=== PATIENT | male | born 1965 | race Caucasian/White ===

== ENCOUNTER → 2017-04-03 | Outpatient (CLI) | payer OTHER ==
[~2017-04-03] MED LIST: AMLO5; ASACOL HD800 MG PO; CYCL10; HYDACE10B; MESA250ER PO; NAPR220 PO; Pentasa500 MG; Prednisone20 MG PO
== END | disposition home or self-care (01) ==
LOC: PLD 09:23
DX: N40.0 Benign prostatic hyperplasia without lower urinary tract symptoms (principal)
CPT/HCPCS: 88305

== ENCOUNTER 2020-05-19 07:06 | Day surgery (SDC) | payer OTHER ==
[~2020-05-19] VITALS: Ht 175.3 cm; Wt 78.6 kg
--- NOTE | 2020-05-19 07:38 | NUR ---
Ambulatory in Day Surgery Patient states colon prep results clear. History, Chart, Medications and Allergies reviewed before start of procedure. Lungs clear T/O to Auscultation. Patient confirms NPO status and agrees with scheduled surgery.
[2020-05-19] MEDS ORDERED: AMLODIPINE-OLM1 EACH PO (07:42)
--- NOTE | 2020-05-19 08:03 | NUR ---
05/19/20 0803 Vinod Dean History, Chart, Medications and Allergies reviewed before start of procedure.MONITOR INTACT WITH CONTINUOUS PULSE OXIMETRY AND INTERMITTENT BP.3-LEAD EKG REVIEWED WITH PHYSICIAN PRIOR TO START OF PROCEDURE.O2 VIA N/C INTACT THROUGHOUT SEDATION/PROCEDURE. PATIENT DETERMINED TO BE ASA APPROPRIATE FOR PROPOFOL SEDATION PRIOR TO START OF PROCEDURE BY DR. MARES.
--- NOTE | 2020-05-19 08:45 | NUR ---
Patient States Post-Procedure ride home has been arranged. Discharge instructions reviewed with patient. Patient verbalizes understanding. Copy given to patient to take home. Discharged via wheelchair to private car for ride home.
== END 2020-05-19 08:45 | disposition home or self-care (01) ==
LOC: ORSCMMR 07:06
PROVIDERS: Internal Medicine Gastroenterology
PROC: 0DBL8ZX Excision of Transverse Colon, Via Natural or Artificial Opening Endoscopic, Diagnostic (ICD-10-PCS; principal; 2020-05-19 08:00)
DX: Z87.19 Personal history of other diseases of the digestive system (principal); Z86.010 Personal history of colon polyps; D12.3 Benign neoplasm of transverse colon; Z79.899 Other long term (current) drug therapy
CPT/HCPCS: 88305; J2704; J7120

== ENCOUNTER → 2024-01-15 | Outpatient (CLI) | payer OTHER ==
[~2024-01-15] MED LIST changes: +AMLODIPINE-OLM1 EACH PO; +Norco 10-325 T1 EACH PO
[2024-01-15 11:23] LABS: Adenovirus F 40/41 Not Detected (NOT DETECT); Astrovirus Detected (NOT DETECT); Campylobacter Sp Not Detected (NOT DETECT); Cryptosporidium Not Detected (NOT DETECT); Cyclospora Cayetanensis Not Detected (NOT DETECT); E. Coli O157 Not Detected (NOT DETECT); Entamoeba Histolytica Not Detected (NOT DETECT); Enteroaggregative E. coli-EAEC Not Detected (NOT DETECT); Enteropathogenic E. coli-EPEC Not Detected (NOT DETECT); Enterotoxigenic E. coli-ETEC Not Detected (NOT DETECT); Giardia Lamblia Not Detected (NOT DETECT); Norovirus GI/GII Not Detected (NOT DETECT); Plesiomonas Shigelloides Not Detected (NOT DETECT); Rotavirus A Not Detected (NOT DETECT); Salmonella Sp Not Detected (NOT DETECT); Sapovirus Not Detected (NOT DETECT); Shiga Toxin-prod E. coli-STEC Not Detected (NOT DETECT); Shigella/Enteroin E. coli-EIEC Not Detected (NOT DETECT); Vibrio Cholerae Not Detected (NOT DETECT); Vibrio Sp Not Detected (NOT DETECT); Yersinia Enterocolitica Not Detected (NOT DETECT)
== END ==
LOC: LAB 04:20 → LAB SHORT 04:20
PROVIDERS: Physician Assistant
DX: R19.7 Diarrhea, unspecified (principal)
CPT/HCPCS: 87507

== ENCOUNTER 2024-07-23 09:07 | Day surgery (SDC) | payer OTHER ==
[~2024-07-23] VITALS: Ht 172.7 cm; Wt 75.9 kg
[2024-07-23] VITALS (18 sets, daily range): BP systolic 84–130; BP diastolic 58–85
[~2024-07-23 09:07] MED LIST changes: +Lactated Ringer's 1,000 ML IV SCH
[2024-07-23] MEDS ORDERED: CYCLOBENZAPRINE5 MG PO (09:23)
[2024-07-23] MEDS ORDERED: propofoL 20 ML IV ONE (10:01)
[2024-07-23] MEDS ORDERED: Midazolam HCl 1MG / ML 2ML Vial ONE (10:01)
--- NOTE | 2024-07-23 10:09 | NUR ---
07/23/24 Michael9 Krysten Strauss CONFIRMED AND REVIEWED H&P, MEDCICATIONS, ALLERGIES, MEDICAL HISTORY, RESPIRATORY HISTORY, VITAL SIGNS, 3-LEAD EKG, CONSENTS, AND PHYSICIAN ORDERS. PATIENT CONFIRMS NPO STATUS AND AGREES WITH SCHEDULED PROCEDURE. MONITOR INTACT WITH CONTINUOUS PULSE OXIMETRY, CAPNOGRAPHY, 3-LEAD EKG, INTERMITTENT BP. SUPPLEMENTAL O2 TO BE TITRATED THROUGHOUT PROCEDURE TO MAINTAIN O2 SATURATION ABOVE 90%. PATIENT DETERMINED TO BE ASA APPROPRIATE FOR PROPOFOL SEDATION PRIOR TO START OF PROCEDURE BY DR. MARES. MALLAMPATI CLASS 1 AIRWAY: COMPLETE VISULATIZATION OF THE SOFT PALATE.
[2024-07-23] MEDS ORDERED: Midazolam HCl 1MG / ML 2ML Vial IV ONE ×2 (10:15)
--- NOTE | 2024-07-23 11:05 | NUR ---
DISCHARGE PT A&OX4/VSS/RA/SERG PO/DRESSED SELF/IV DC'D, DENIES PAIN, DENIES NAUSEA, DC INS PROVIDED/COPY SENT, LEFT VIA WC WITH DC VOL TO GO HOME WITH FRIEND LUL/ B OPERATOR, WITH ALL PERSONAL POSSESSIONS.
== END 2024-07-23 23:00 | disposition home or self-care (01) ==
LOC: ORSCMMR 09:07 → ORD 09:30 → ORSCMMR 23:00
PROVIDERS: Internal Medicine Gastroenterology
PROC: 0DBH8ZX Excision of Cecum, Via Natural or Artificial Opening Endoscopic, Diagnostic (ICD-10-PCS; principal; 2024-07-23 09:30)
PROC: 0DBN8ZX Excision of Sigmoid Colon, Via Natural or Artificial Opening Endoscopic, Diagnostic (ICD-10-PCS; principal; 2024-07-23 09:30)
DX: K51.90 Ulcerative colitis, unspecified, without complications (principal); D12.0 Benign neoplasm of cecum; K64.4 Residual hemorrhoidal skin tags; I10 Essential (primary) hypertension; Z79.899 Other long term (current) drug therapy
CPT/HCPCS: 88305; J2250; J2704; J7120